=== PATIENT | male | born 1945 | race Caucasian/White ===

== ENCOUNTER 2021-12-29 13:10 | Emergency (ER) | payer MEDICAID, MEDICARE ==
[2021-12-29] MEDS ORDERED: Sodium Chloride 0.9% 10 ML Syringe FLUSH PRN (13:42)
[2021-12-29] MEDS ORDERED: Lactated Ringers 1,000 ML IV SCH (13:45)
[2021-12-29] MEDS ORDERED: Iopamidol 755 Mg/ML 100 ML Bottle IV SCH (14:00)
[2021-12-29] MEDS ORDERED: Sodium Chloride 0.9% 100 ML IV SCH (14:00)
[2021-12-29] MEDS ORDERED: Meclizine 25 MG Tab PO ONE (14:16)
== END 2021-12-29 16:23 | disposition left against medical advice (07) ==
LOC: JP.ED 13:10
DX: I60.9 Nontraumatic subarachnoid hemorrhage, unspecified (principal); Z72.0 Tobacco use
CPT/HCPCS: 36415; 70450; 70450-26; 70496; 70496-26; 70498; 70498-26; 80048; 85025; 93005; 93010; 96360; 96361; 99283; 99284-25; A9270-GY; J3490; J7120; Q9967